=== PATIENT | female | born 1970 | race Caucasian/White ===

== ENCOUNTER 2023-01-12 13:54 | Outpatient (CLI) | payer MEDICAID, SELFPAY ==
--- NOTE | 2023-01-12 | MR_ITS ---
WS: [id number] MRI HEAD WITHOUT CONTRAST TECHNIQUE: Sagittal T1, T2 axial, T2 axial FLAIR, axial and coronal T1 images, axial susceptibility w eighted imaging, axial diffusion weighted images, and coronal T2 images were obtained. CLINICAL INFORMATION: TIA COMPARISON: None. FINDINGS: No evidence of restricted diffusion to suggest acute ischemia. Ventricular system and basal cisterns are patent. Mild periventricular supratentorial white matter changes nonspecific in a patient this ag e but can be seen with hypertension, diabetes, collagen vascular disease. Recommend correlation clini johnathon history. Normal posterior fossa. Normal vascular flow voids at the skull base. No extra-axial fluid collection s. Chronic appearing tiny lacunar infarcts involving the LEFT centrum semiovale in the periventricula r white matter, and RIGHT caudate. Additional punctate tiny lacunar infarct involving the RIGHT thala mus. Multiple small lacunar infarcts involving the LEFT hemipons. Normal optic chiasm and pituitary infundibulum. Normal cavernous sinuses and Meckel's cave. Paranasal sinuses are well aerated. Mastoid air cells are well aerated. Normal posterior nasopharynx and parap haryngeal fat. No hemosiderin on the susceptibly weighted images. MR/MR head wo con* [id number] IMPRESSION: 1. No evidence of restricted diffusion to suggest acute ischemia. 2. Mild supratentorial white matter changes nonspecific in a patient this age but can be seen with hypertension, diabetes, and collagen vascular disease. 3. Chronic tiny lacunar infarcts involving the LEFT samaniego radiata, RIGHT caud ate, RIGHT thalamus, with additional small lacunar infarcts involving the LEFT srikanth. 4. No hemosiderin on susceptibly weighted images. 5. Normal optic chiasm and pituitary infundibulum. 6. No other suspicious findings.
== END 2023-01-12 13:55 | disposition home or self-care (01) ==
LOC: RAD 13:58
PROVIDERS: PCP Family Medicine; Visit Provider Family Medicine
DX: G45.9 Transient cerebral ischemic attack, unspecified (principal)
CPT/HCPCS: 70551

== ENCOUNTER 2024-05-15 13:47 | Outpatient (CLI) | payer MEDICAID, SELFPAY ==
--- NOTE | 2024-05-15 13:50 | MR_ITS ---
WS: [id number] MRI HEAD WITHOUT CONTRAST TECHNIQUE: Sagittal T1, T2 axial, T2 axial FLAIR, axial and coronal T1 images, axial susceptibility w eighted imaging, axial diffusion weighted images, and coronal T2 images were obtained. CLINICAL INFORMATION: ACUTE LACUNAR INFARCTION/TRANSIENT ISCHEMIC ATTACK COMPARISON: MRI 2022 FINDINGS: No evidence of restricted diffusion to suggest acute ischemia. Ventricular system and basal cisterns are patent. Chronic infarct in the RIGHT frontal periventricular white matter with encephalomalacia a nd gliosis. Associated laminar necrosis. This is new compared to previous but appears chronic. Otherw ise stable mild periventricular supratentorial white matter change. No hemosiderin on the susceptibly weighted images. Normal posterior fossa. Normal vascular flow voids at the skull base. No extra-axial fluid collection s. Chronic appearing tiny lacunar infarcts involving the LEFT centrum semiovale and RIGHT caudate. Pr ogressed tiny lacunar infarcts in the RIGHT periventricular white matter and basal ganglia. Tiny punc rey lacunar infarct involving the thalami bilaterally. Multiple small punctate lacunar infarcts invo lving the LEFT hemipons. Normal optic chiasm and pituitary infundibulum. Normal cavernous sinuses and Meckel's cave. Paranasal sinuses are well aerated. Mastoid air cells are well aerated. Normal posterior nasopharynx and parapharyngeal fat. MR/MR head wo con* [id number] IMPRESSION: 1. No evidence of restricted diffusion to suggest acute ischemia. 2. Chronic infarct involving the RIGHT frontal periventricular white matter wi th encephalomalacia and gliosis. Associated laminar necrosis. This is new from previous. 3. 2 or 3 new but chronic appearing tiny lacunar infarcts in the RIGHT basal g anglia and caudate area. 4. Mild patchy supratentorial white matter changes otherwise unchanged compare d to previous. 5. Otherwise multiple chronic lacunar infarcts described above. 6. No other significant change compared to previous.
== END 2024-05-15 13:48 | disposition home or self-care (01) ==
LOC: RAD 13:49
PROVIDERS: PCP Family Medicine; Visit Provider Family Medicine
DX: I63.81 Other cerebral infarction due to occlusion or stenosis of small artery (principal); G45.9 Transient cerebral ischemic attack, unspecified; I63.9 Cerebral infarction, unspecified; G93.89 Other specified disorders of brain
CPT/HCPCS: 70551

== ENCOUNTER → 2024-08-08 09:04 | Outpatient (BNVA) | payer MEDICAID, SELFPAY | PROVIDERS: PCP Family Medicine; Referring Provider Family Medicine; Visit Provider Psychiatry & Neurology Neurology | DX: Z86.73 Personal history of transient ischemic attack (TIA), and cerebral infarction without residual deficits (principal); R00.2 Palpitations | CPT/HCPCS: 36415; 81241; 82306; 82607; 82746; 83090; 83735; 83921; 85210; 85613; 85730; 86147 ==

== ENCOUNTER 2024-09-06 13:57 | Outpatient (CLI) | payer MEDICAID, SELFPAY ==
--- NOTE | 2024-09-06 14:00 | USCV_ITS ---
Molly Harris Age: 54 Gender: F : 1970 Exam Date: 09/06/2024 14:45 Ordering Phys: Baldomero Barrios MD Technologist: [place] [facility] [place]ication: cva on mri Risk Factors: Previous Vascular Surgery: Right Brachial BP: / Left Brachial BP: / Right Left Velocity (cm/s) Spectral Plaque Velocity (cm/s) Spectral Plaque Syst/Diast Broadening Syst/Diast Broadening 80.20/ 14.10 Prox CCA 62.10 / 18.00 72.40/ 12.80 Mid CCA 65.90 / 15.40 59.50/ 14.10 Hetro Distal CCA 58.20 / 16.70 Hetro 46.50/ 11.50 Hetro Prox ICA 43.70 / 11.50 Hetro 55.60/ 14.10 Mid ICA 77.20 / 20.50 60.80/ 19.30 Distal ICA 88.80 / 28.20 67.20 ECA 91.70 1.00 ICA/CCA 1.50 Antegrade Vertebral Antegrade 53.00/ 10.00 cm/s 54.00/ 10.20 cm/s Tri Subclavian Tri 134.0 171.8 0 0 FINDINGS Comparison: none available. No significant elevation of systolic or diastolic velocities. Waveforms are normal. Mild plaque in the bifurcations. Antegrade vertebral arteries. CONCLUSIONS Bilateral ICA stenosis less than 50%. Dr. Sarah Matos DO (Electronically Signed) Final Date: 06 September 2024 15:55 S
== END 2024-09-06 13:58 | disposition home or self-care (01) ==
LOC: RAD 13:58
PROVIDERS: PCP Family Medicine; Visit Provider Psychiatry & Neurology Neurology
DX: R00.2 Palpitations (principal); Z86.73 Personal history of transient ischemic attack (TIA), and cerebral infarction without residual deficits
CPT/HCPCS: 93880

== ENCOUNTER → 2024-10-03 14:24 | Outpatient (BNVA) | payer MEDICAID, SELFPAY | PROVIDERS: PCP Family Medicine; Visit Provider Internal Medicine | DX: R07.9 Chest pain, unspecified (principal) | CPT/HCPCS: 93005 ==

== ENCOUNTER 2025-01-15 11:51 | Outpatient (CLI) | payer MEDICAID, SELFPAY ==
--- NOTE | 2025-01-15 | ECG_ITS ---
[employer] Test Date: 2025-01-15 Pat Name: Molly Harris Department: Room: Gender: Female [employer]ist: : 1970 Requested By: Cesar Park Order Number: [id number] Reading MD: CESAR PARK Interpretive Statements Lung unchanged pre/post procedure; Intraprocedure shortess of breath; Symptoms resoled by discharge EXERCISE DATA: The patient was exercised by Gualberto protocol. Baseline heart rate was 73 beats per minute. Baseline blood pressure was 146/74 millimeters of mercury. Target heart rate was 165 beats per minute. Maximum heart rate achieved was 144, which was 87% of the target heart rate. Maximum blood pressure was 204/101 millimeters of mercury. Total exercise time was 6 minutes 54 seconds. Maximum METs achieved was 8.7, maximum VO2 was 30 . The reason for ending the test was maximum effort achieved. The patient complained of shortness of breath during the stress test, which then resolved at the end of the test. ELECTROCARDIOGRAM: BASELINE: Showed sinus rhythm, normal axis, nonspecific inferolateral ST changes EXERCISE: At the peak exercise level moderate inferolateral ST changes noted which were upsloping RECOVERY: During the recovery period, heart rate dropped appropriately. Inferolateral ST depression continues into 4 minutes and 49 seconds of recovery CONCLUSION: 1. Exercise capacity fair. 2. Heart rate response was [appropriate]. 3. Blood pressure response was hypertensive. 4. Symptoms not suggestive of ischemia. 5. Electrocardiogram portion of the stress test was equivocal for ischemia. Clinical correlation advised 6. Nuclear scan will be documented separately. Electronically Signed On 02-03-2025 21:28:55 CDT by CESAR PARK [email or web address]
[2025-01-15 11:53] VITALS: BMI 29.7
--- NOTE | 2025-01-15 12:40 | USCV_ITS ---
Molly Harris Age: 54 Gender: F : 1970 Exam Date: 01/15/2025 13:53 Ordering Phys: Juan J Guzman M.D ([email or web address]) Technologist: Exam Location: [facility] Indication: TIA CVA BP: / HR: 78 Rhythm: Sinus Technical Quality: Adequate MEASUREMENTS (Male / Female) Normal Values 2D ECHO LV Diastolic Diameter PLAX 3.8 cm 4.2 - 5.9 / 3.9 - 5.3 cm IVS Diastolic Thickness 1.5 cm 0.6 - 1.0 / 0.6 - 0.9 cm IVS Systolic Thickness 1.7 cm LVPW Diastolic Thickness 1.2 cm 0.6 - 1.0 / 0.6 - 0.9 cm LVPW Systolic Thickness 1.6 cm LVOT Diameter 2.0 cm LV Ejection Fraction 2D Teich 64.3 % LV Ejection Fraction MOD 4C 56.3 % LV Ejection Fraction MOD 2C 71.0 % LV Ejection Fraction 2C AL 69.8 % LA Diameter 2.7 cm RA Systolic Volume 4C AL 23.8 ml RA Systolic Volume 4C MOD 21.1 ml Aorta at Sinotubular Diameter 2.6 cm IVC Diameter 1.2 cm M-MODE LA Ao Ratio MM 1.1 AV Cusp Separation MM 2.0 cm DOPPLER AV Peak Velocity 163.7 cm/s LVOT Peak Velocity 97.0 cm/s AV Area Cont Eq vti 2.3 cm squared AV Area Cont Eq pk 1.9 cm squared MV Peak Velocity 158.0 cm/s TV Peak Velocity 187.5 cm/s TR Peak Velocity 215.0 cm/s TR Peak Gradient 18.5 mmHg TV Peak E Velocity 63.0 cm/s PV Peak Velocity 124.0 cm/s FINDINGS Left Ventricle Left ventricle is normal in size. LV systolic function is normal with EF of 55 to 60%. No regional wall motion abnormalities are seen. Right Ventricle Normal in size and function Right Atrium Normal in size. On bubble study, no intracardiac shunting seen. Left Atrium Normal in size Mitral Valve Structurally normal mitral valve. Trace mitral regurgitation. Aortic Valve Structurally normal aortic valve. No significant stenosis. Mild aortic regurgitation. Tricuspid Valve Mild tricuspid regurgitation. Insufficient TR jet to calculate RVSP Pulmonic Valve Not well visualized Pericardium Normal Aorta Normal in size IVC Appears to be normal CONCLUSIONS LV systolic function is normal with EF of 55-60% On bubble study, no intracardiac shunting seen. Trace mitral regurgitation. Mild tricuspid regurgitation. No comparison studies are available. Juan J Guzman MD (Electronically Signed) Final Date: 29 January 2025 12:39 S
[2025-01-15 12:43] VITALS: BP 146/84; PULSE 83
== END 2025-01-15 11:52 | disposition home or self-care (01) ==
PROVIDERS: PCP Family Medicine; Visit Provider Internal Medicine
DX: R07.9 Chest pain, unspecified (principal); R06.02 Shortness of breath; I35.1 Nonrheumatic aortic (valve) insufficiency; I07.1 Rheumatic tricuspid insufficiency; R93.1 Abnormal findings on diagnostic imaging of heart and coronary circulation
CPT/HCPCS: 93017; C8924